=== PATIENT | male | born 1985 | race Caucasian/White ===

== ENCOUNTER 2020-01-01 09:25 | Emergency (ER) | payer MEDICAID, SELFPAY ==
[2020-01-01 09:29] VITALS: BP 155/96; PULSE 93; RESP 20; TEMP 36.8; O2SAT 96
[2020-01-01] MEDS: Ibuprofen 600 MG TAB PO (09:45)
--- NOTE | 2020-01-01 09:45 | W.ED.GENAD ---
Discharge Plan Disposition Patient Disposition: HOME Condition: Stable Discharge Details Chief Complaint: Orthopedic Clinical Impression: Closed fracture of greater tuberosity of humerus, Contusion of rib on left side, Abrasion of elbow, right, Contusion of hip, right Primary Care Provider: Paxton Iraheta ED Provider: Elaine Graham Home Meds and New Rx's Prescriptions: Continued methadone [Dolophine] 10 MG tablet 40 mg PO DAILY RF: 0 acetaminophen [Mapap Extra Strength] 500 MG tablet 1,000 mg PO Q8H Qty: 60 RF: 3 ibuprofen 800 MG tablet 800 mg PO Q8H PRN PRNQty: 60 RF: 1 Narcan 4 MG spray,non-aerosol 4 mg NS DIRECTED Qty: 2 RF: 0 Narcan 4 MG spray,non-aerosol 4 mg NS DIRECTED Qty: 2 RF: 0 Discharge Instructions Instructions: Abrasion (ED), Rib Contusion (ED), Proximal Humerus Fracture (ED) Additional Instructions: Drink plenty of fluids and get plenty of rest. Alternate tylenol and motrin as needed and directed for pain. Rest, ice, and elevate the affected area as much as possible. Call the orthopedist on Friday morning to schedule a follow-up appointment for reevaluation in 2 weeks. Return to the emergency department if you develop any worsening or new concerning symptoms. Referrals: Salty Wray MD [ [facility] STAFF PHYSICIAN] - Discharge Data Discharge Date/Time-TO BE ENTERED AT DEPARTURE: 01/01/20 10:46 Discharge Physician: Elaine Graham Medical Decision Making [id number] male presents with right shoulder pain after fall while playing with daughter yesterday. Denies head injury. Main complaint is right shoulder pain. He has tenderness palpation of right mid to lateral clavicle as well as right shoulder. He has a superficial abrasion to the right medial elbow but no pain with range of motion or deformity. He also has an area of ecchymosis to the left inferior anterior lateral ribs. He also has a superficial abrasion to the right lateral proximal thigh. Distal pulses intact. No midline spinal tenderness. Lungs clear. Abdomen soft and nontender. Will refer for right clavicle and shoulder x-rays, as well as left rib and PA lateral chest x-rays. Do not see an indication for right elbow or right hip x-rays. A dose of ibuprofen was given. X-ray notes greater tuberosity fracture. X-rays reviewed with Dr. Wray who agrees and recommends sling and follow-up in 2 weeks. The left ribs and chest x-ray noted a possibly acute left posterior 10th rib fracture. Patient denies any pain in this area. Do not suspect acute left 10th rib fracture, but patient given rib fracture recommendations anyway, advised to take deep breaths and pain control. Declined incentive spirometer. Patient placed on orthopedic follow-up list. Advised on the importance of RICE. Usual and customary return precautions given prior to discharge. Medical Records Medical records reviewed: Yes I reviewed the patient's medical records. Imaging Data Radiologic Study: Radiologist's impression: XR Left Ribs Exam date and time: 01/01/2020 9:51 AM Age: 34 years old Clinical indication: Other: S/P fall onto L ribs TECHNIQUE: Imaging protocol: XR Left ribs. Views: 2 views. COMPARISON: No relevant prior studies available. FINDINGS: Bones/joints: There appears to be a mildly displaced fracture of the left 10th rib posteriorly, which could be acute. This is near an external marker. No other fracture is identified. Soft tissues: The soft tissues appear grossly unremarkable. IMPRESSION: Apparent mildly displaced fracture of the left 10th rib posteriorly, could be acute. XR Chest, 2 Views Exam date and time: 01/01/2020 9:51 AM Age: 34 years old Clinical indication: Other: S/P fall onto L ribs TECHNIQUE: Imaging protocol: XR of the chest Views: 2 views. COMPARISON: No relevant prior studies available. FINDINGS: Lungs: Unremarkable. No consolidation. Pleural space: Unremarkable. No pleural effusion. No pneumothorax. Heart/Mediastinum: Unremarkable. No cardiomegaly. Bones/joints: Unremarkable. IMPRESSION: No evidence for acute pulmonary disease. XR Right Clavicle, Complete Exam date and time: 01/01/2020 9:55 AM Age: 34 years old Clinical indication: Other: S/P fall onto R shoulder/clavicle TECHNIQUE: Imaging protocol: XR Right clavicle complete. Any number of views. COMPARISON: CR - XR SHOULDER RT COMPLETE 2+V 01/01/2020 9:58:00 AM FINDINGS: Bones/joints: There again appears to be a nondisplaced fracture along the greater tuberosity. No other fracture is identified, including of the clavicle. There is very mild acromioclavicular arthrosis. Soft tissues: There is mild soft tissue swelling laterally over the humeral head. IMPRESSION: Probable nondisplaced fracture of the greater tuberosity. No clavicular fracture identified. XR Right Shoulder Exam date and time: 01/01/2020 9:57 AM Age: 34 years old Clinical indication: Other: S/P fall onto R shoulder TECHNIQUE: Imaging protocol: XR Right shoulder. Views: 2 or more views. COMPARISON: No relevant prior studies available. FINDINGS: Bones/joints: There is probably a nondisplaced fracture along the greater tuberosity. No other fracture is identified. The acromioclavicular and glenohumeral joints are normally aligned. There is very mild acromioclavicular arthrosis. Soft tissues: There is some soft tissue swelling laterally. IMPRESSION: 1. Probable nondisplaced fracture along the greater tuberosity. 2. Very mild acromioclavicular arthrosis. HPI General Mode of arrival: ambulatory. Date/Time Provider Initiated Documentation: 01/01/20 09:40. Limitations to Documentation: no limitations. Information obtained by: patient. HPI Narrative: Patient is a 34-year-old male who presents with right shoulder pain after fall yesterday. Patient states he was wrestling with his daughter outside when he fell onto his right outstretched arm onto the ground. He is complaining of pain in his right anterior shoulder and is concerned about possible dislocation. He denies head injury, LOC or vomiting. He states he also fell onto his right hip but denies any pain in this location. He has not taken any medication for pain. He denies any difficulty breathing, abdominal pain, neck or back pain. Related Data Home Medications Medication Instructions Recorded Confirmed methadone [Dolophine] 40 mg PO DAILY 10/28/17 01/01/20 Narcan 4 mg NS DIRECTED #2 spray 10/29/17 01/01/20 Narcan 4 mg NS DIRECTED #2 spray 10/29/17 01/01/20 acetaminophen [Mapap Extra 1,000 mg PO Q8H #60 tab 10/29/17 01/01/20 Strength] ibuprofen 800 mg PO Q8H PRN PRN #60 tablet 10/29/17 01/01/20 Previous Rx's Medication Instructions Recorded Narcan 4 mg NS DIRECTED #2 spray 10/29/17 Narcan 4 mg NS DIRECTED #2 spray 10/29/17 acetaminophen [Mapap Extra 1,000 mg PO Q8H #60 tab 10/29/17 Strength] ibuprofen 800 mg PO Q8H PRN PRN #60 tablet 10/29/17 Allergies Allergy/AdvReac Type Severity Reaction Status Date / Time No Known Allergies Allergy Unverified 01/01/20 09:34 General Stated Complaint: Orthopedic SHELLY: 4 Review of Systems All systems reviewed & are unremarkable except as noted in HPI and below Constitutional Constitutional: Reports as per HPI, Denies chills and Denies fever(s) Eyes Eyes: Denies blurry vision ENT Ears, Nose, Mouth, and Throat: Denies dizziness, Denies sore throat and Denies throat swelling Cardiovascular Cardiovascular: Denies chest pain and Denies dyspnea Respiratory Respiratory: Denies cough and Denies dyspnea Gastrointestinal Gastrointestinal: Denies abdominal pain, Denies diarrhea and Denies vomiting Genitourinary Genitourinary: Denies hematuria and Denies dysuria Musculoskeletal Musculoskeletal: Denies back pain and Denies numbness Integumentary/Breasts Skin/Breast: Denies lesions and Denies rash Neurologic Neurologic: Denies dizziness, Denies localized weakness and Denies numbness Allergic/Immunologic Allergic/Immunologic: Denies throat swelling [facility] Medical History (Updated 01/01/20 @ 10:38 by Elaine Graham DO) Narcotic abuse (Chronic) Surgical History (Updated 01/01/20 @ 09:59 by Elaine Graham DO) No significant past surgical history (Acute) Social History Smoking/Tobacco Use Status: Current every day Alcohol Intake: current Alcohol Intake frequency: 0-2 drinks per day Drug use: Rarely Details: methadone program Do you feel safe at home: Yes Do you feel safe in your relationship?: Yes Exam Const General: cooperative and healthy appearing Orientation: alert and awake HENWA Head: normal to inspection Ears: hearing grossly normal bilaterally and external ears normal General nose exam: external nose normal Face and sinus: normal facial exam Mouth: oral mucosae normal Teeth and gingiva: poor dentition Eyes General: appearance normal, both eyes and all related structures Eyelids: eyelids normal Pupils: PERRL EOM: EOM intact bilaterally Neck Neck: normal visual inspection Lymphatic: no lymphadenopathy noted Chest Chest: normal inspection of the chest Chest/axillae images: 1. Ecchymosis and tenderness noted to left inferior anterior lateral ribs. No crepitus, step-off, edema, erythema or abrasion. Resp Effort & Inspection: normal respiratory effort and able to speak in complete sentences Auscultation: clear to auscultation bilaterally Cardio Rate: regular rate Rhythm: regular rhythm GI Inspection: normal to inspection and no abdominal wall ecchymosis Palpation: soft, not firm, no guarding, no hepatosplenomegaly, no masses and nontender Auscultation: normal bowel sounds Back/Spine/Pelvis Cervical Spine: No cervical spinal tenderness Thoracic/Lumbar Spine: No thoracic spinal tenderness and No lumbar spinal tenderness Pelvis: no pain with anterior-posterior compression Skin General skin exam: no rashes or lesions noted Neuro General: patient alert and patient awake Cognition: normal cognition Speech: speech normal Gait: normal gait Motor: muscle tone normal throughout Sensory Exam: no sensory deficits noted Extrem General: normal to inspection, full ROM and capillary refill normal Shoulder/upper arm images: 1. Tenderness to palpation of right mid to lateral clavicle. No crepitus, step-off, edema or ecchymosis noted. 2. Tenderness to palpation to right anterior, lateral and posterior shoulder. No deformity, edema, ecchymosis or abrasion. Limited range of motion due to pain. Elbow/forearm/wrist images: 1. Area of superficial abrasion, minimal tenderness. No pain with range of motion at right elbow. No deformity noted. Upper/lower leg/hip images: 1. Superficial ecchymosis with minimal tenderness to palpation. No pain with range of motion at bilateral hips. Other: Full range of motion left upper and bilateral lower extremities without pain. Bilateral radial pulses intact. Psych Appearance: grossly normal Mental Status: mental status grossly normal Speech and Movement: speech and movement normal Affect: normal affect Thought Process: normal Course Vital Signs Vital signs: Vital Signs Temperature 98.2 F 01/01/20 09:29 Pulse 93 H 01/01/20 09:29 Respiratory Rate 20 01/01/20 09:29 Blood Pressure 155/96 H 01/01/20 09:29 Pulse Oximetry 96 01/01/20 09:29 Temperature 98.2 F 01/01/20 09:29 Pulse 93 H 01/01/20 09:29 Respiratory Rate 20 01/01/20 09:29 Respiratory Effort Non-Labored 01/01/20 09:32 Blood Pressure 155/96 H 01/01/20 09:29 Blood Pressure Position Sitting 01/01/20 09:29 Pulse Oximetry 96 01/01/20 09:29 Oxygen Delivery Method Room Air 01/01/20 09:29 Oxygen Flow Rate 0 01/01/20 09:29 Pain Level 6 01/01/20 09:29
--- NOTE | 2020-01-01 10:02 | DI.RAD_ITS ---
EXAM: XR SHOULDER RT COMPLETE 2+V CLINICAL HISTORY: s/p fall onto R shoulder. TECHNIQUE: 2D digital imaging was performed. COMPARISON: CR,XR XR CLAVICLE RT from 01/01/2020 FINDINGS: BONES: There is a nondisplaced fracture at the greater tuberosity. Glenohumeral joint is maintained. There are mild degenerative changes of the AC joint. The visualized portions of the right ribs are unremarkable. No pneumothorax is visible. JOINTS: No dislocation present. SOFT TISSUE: Normal. IMPRESSION: Nondisplaced fracture at the greater tuberosity. DATA REPOSITORY: RADIATION DOSE DELIVERED:
--- NOTE | 2020-01-01 10:02 | DI.RAD_ITS ---
EXAM: XR CLAVICLE RT CLINICAL HISTORY: s/p fall onto R shoulder/clavicle TECHNIQUE: 2D digital imaging was performed. COMPARISON: CR,XR XR RIBS LT W PA LAT CHEST from 01/01/2020 FINDINGS: There is a fracture of the greater tuberosity which is nondisplaced. No additional flat fractures ar e seen. There are degenerative changes of the AC joint. 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 No pneumothorax is seen. IMPRESSION: Nondisplaced fracture of the greater tuberosity. DATA REPOSITORY: RADIATION DOSE DELIVERED:
--- NOTE | 2020-01-01 10:02 | DI.RAD_ITS ---
EXAM: XR RIBS LT W PA LAT CHEST CLINICAL HISTORY: s/p fall onto L ribs. COMPARISON: No exams were available for comparison FINDINGS: LUNGS: Clear. No pneumothorax is seen. No infiltrate or effusion. HEART: Normal in size. BONES: There is a question of a left 10th rib fracture. No bony destructive lesion is seen. The spi ne is grossly intact. 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 IMPRESSION: Question of a left 10th rib fracture.
--- NOTE | 2020-01-01 10:14 | DI.VRAD_ITS ---
PROCEDURE INFORMATION: Exam: XR Right Clavicle, Complete Exam date and time: 01/01/2020 9:55 AM Age: 34 years old Clinical indication: Other: S/P fall onto R shoulder/clavicle TECHNIQUE: Imaging protocol: XR Right clavicle complete. Any number of views. COMPARISON: CR - XR SHOULDER RT COMPLETE 2+V 01/01/2020 9:58:00 AM FINDINGS: Bones/joints: There again appears to be a nondisplaced fracture along the greater tuberosity. No other fracture is identified, including of the clavicle. There is very mild acromioclavicular arthrosis. Soft tissues: There is mild soft tissue swelling laterally over the humeral head. IMPRESSION: Probable nondisplaced fracture of the greater tuberosity. No clavicular fracture identified. Dictated and Authenticated by: Kevon Edmond MD. Ordering:RUBEN Henry MD
--- NOTE | 2020-01-01 10:14 | DI.VRAD_ITS ---
PROCEDURE INFORMATION: Exam: XR Right Shoulder Exam date and time: 01/01/2020 9:57 AM Age: 34 years old Clinical indication: Other: S/P fall onto R shoulder TECHNIQUE: Imaging protocol: XR Right shoulder. Views: 2 or more views. COMPARISON: No relevant prior studies available. FINDINGS: Bones/joints: There is probably a nondisplaced fracture along the greater tuberosity. No other fracture is identified. The acromioclavicular and glenohumeral joints are normally aligned. There is very mild acromioclavicular arthrosis. Soft tissues: There is some soft tissue swelling laterally. IMPRESSION: 1. Probable nondisplaced fracture along the greater tuberosity. 2. Very mild acromioclavicular arthrosis. Dictated and Authenticated by: Kevon Edmond MD. Ordering:RUBEN Henry MD
--- NOTE | 2020-01-01 10:17 | DI.VRAD_ITS ---
PROCEDURE INFORMATION: Exam: XR Left Ribs Exam date and time: 01/01/2020 9:51 AM Age: 34 years old Clinical indication: Other: S/P fall onto L ribs TECHNIQUE: Imaging protocol: XR Left ribs. Views: 2 views. COMPARISON: No relevant prior studies available. FINDINGS: Bones/joints: There appears to be a mildly displaced fracture of the left 10th rib posteriorly, which could be acute. This is near an external marker. No other fracture is identified. Soft tissues: The soft tissues appear grossly unremarkable. IMPRESSION: Apparent mildly displaced fracture of the left 10th rib posteriorly, could be acute. PROCEDURE INFORMATION: Exam: XR Chest, 2 Views Exam date and time: 01/01/2020 9:51 AM Age: 34 years old Clinical indication: Other: S/P fall onto L ribs TECHNIQUE: Imaging protocol: XR of the chest Views: 2 views. COMPARISON: No relevant prior studies available. FINDINGS: Lungs: Unremarkable. No consolidation. Pleural space: Unremarkable. No pleural effusion. No pneumothorax. Heart/Mediastinum: Unremarkable. No cardiomegaly. Bones/joints: Unremarkable. IMPRESSION: No evidence for acute pulmonary disease. Dictated and Authenticated by: Kevon Edmond MD. Ordering:RUBEN Henry MD
== END 2020-01-01 10:46 | disposition home or self-care (01) ==
PROVIDERS: Emergency Provider Physician Assistant; PCP Family Medicine
DX: S42.251A Displaced fracture of greater tuberosity of right humerus, initial encounter for closed fracture (principal); S20.212A Contusion of left front wall of thorax, initial encounter; S50.311A Abrasion of right elbow, initial encounter; S70.01XA Contusion of right hip, initial encounter; W01.0XXA Fall on same level from slipping, tripping and stumbling without subsequent striking against object, initial encounter
CPT/HCPCS: 99284; 71046; 71100; 73000; 73030; L3650

== ENCOUNTER 2020-10-18 14:02 | Emergency (ER) | payer MEDICAID, SELFPAY ==
[2020-10-18 14:12] VITALS: BP 133/74; PULSE 69; TEMP 36.7; O2SAT 97
[2020-10-18] MEDS: Balanced Salt Solution 15 ML BTL (14:27)
[2020-10-18] MEDS: Fluorescein STRIPS 100/BOX 1 MG (14:27)
[2020-10-18] MEDS: Tetracaine 0.5% 4 ML BTL (14:27)
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
[2020-10-18] MEDS: Erythromycin Ophth Oint 3.5 GM TUBE OD (15:04)
== END 2020-10-18 15:06 | disposition home or self-care (01) ==
PROVIDERS: Emergency Provider Physician Assistant
DX: S05.02XA Injury of conjunctiva and corneal abrasion without foreign body, left eye, initial encounter (principal); W25.XXXA Contact with sharp glass, initial encounter; V49.9XXA Car occupant (driver) (passenger) injured in unspecified traffic accident, initial encounter
CPT/HCPCS: 99285; 99283

== ENCOUNTER 2021-05-24 12:23 | Emergency (ER) | payer MEDICAID, SELFPAY ==
[2021-05-24 12:51] VITALS: BP 142/83; PULSE 82; RESP 16; TEMP 37.1; O2SAT 98
[2021-05-24] MEDS: Sulfameth/Trimeth DS TAB 1 TAB PO (13:09)
--- NOTE | 2021-05-24 13:09 | ED.GENADUL_ITS ---
Discharge Plan Disposition Patient Disposition: HOME Condition: Stable Discharge Details Clinical Impression: Facial cellulitis Primary Care Provider: Ernesto Barber ED Provider: Radha Roy Home Meds and New Rx's Prescriptions: New sulfamethoxazole-trimethoprim [Bactrim DS] 800-160 mg tablet 1 tab PO BID 7 Days Qty: 14 RF: 0 No Action methadone [Dolophine] 10 MG tablet 88 mg PO DAILY RF: 0 acetaminophen [Mapap Extra Strength] 500 MG tablet 1,000 mg PO Q8H Qty: 60 RF: 3 ibuprofen 800 MG tablet 800 mg PO Q8H PRN PRNQty: 60 RF: 1 Narcan 4 MG spray,non-aerosol 4 mg NS DIRECTED Qty: 2 RF: 0 Discharge Instructions Instructions: Cellulitis (ED) Additional Instructions: Do not pick at her scratch area. Wash with soap and water every day. Allowed to air dry at least 2 hours a day. Apply antibiotic ointment once or twice a day for the next 5 to 7 days. Take the antibiotics twice daily as directed. The swelling and redness should get better in the next 3 to 5 days. If it gets any worse or you start having fever please return to the emergency department or be seen sooner. Please take Tylenol or Ibuprofen with food every 4-6 hours as needed for pain and swelling. Follow up with primary care provider in 3-5 days. Return to ED sooner if any worsening or concerns. Increase oral fluids. Referrals: Ernesto Barber, [Primary Care Provider] - 5 days Medical Decision Making 35-year-old male presents to the ER with chief complaint of right lip and facial cellulitis. He reports he had a pimple noted to his right upper lip which he popped. He reports that this morning and last night the swelling and redness became worse. He reports some white purulent drainage. He does have 2 lesions noted to the right side of his face with surrounding erythema and induration. No fluctuance or evidence of abscess. Patient is alert and oriented speaking in full sentences. He does have a past medical history of opioid dependence and narcotic abuse. He denies any allergies. No other associated symptoms denies fever, abdominal pain nausea vomiting diarrhea. Patient given topical mupirocin ointment and instructed on use and prescribed Bactrim twice daily first dose given here. Discussed return instructions. Verbalized understanding. This text was generated using [employer] system, please disregard any oddities of phrase or misspellings. HPI General Mode of arrival: ambulatory . Date/Time Provider Initiated Documentation: 05/24/21 12:52 . Limitations to Documentation: no limitations . Information obtained by: patient and RN notes reviewed . HPI Narrative: 35- year-old male presents to the ER with chief complaint of right lip and facial cellulitis. He reports he had a pimple noted to his right upper lip which he popped. He reports that this morning and last night the swelling and redness became worse. He reports some white purulent drainage. He does have 2 lesions noted to the right side of his face with surrounding erythema and induration. No fluctuance or evidence of abscess. Patient is alert and oriented speaking in full sentences. He does have a past medical history of opioid dependence and narcotic abuse. He denies any allergies. No other associated symptoms denies fever, abdominal pain nausea vomiting diarrhea. Related Data Home Medications Medication Instructions Recorded Confirmed methadone [Dolophine] 88 mg PO DAILY 10/28/17 05/24/21 Narcan 4 mg NS DIRECTED #2 spray 10/29/17 05/24/21 acetaminophen [Mapap Extra 1,000 mg PO Q8H #60 tab 10/29/17 05/24/21 Strength] ibuprofen 800 mg PO Q8H PRN PRN #60 tablet 10/29/17 05/24/21 sulfamethoxazole-trimethoprim 1 tab PO BID 7 Days #14 tab 05/24/21 [Bactrim DS] Previous Rx's Medication Instructions Recorded Narcan 4 mg NS DIRECTED #2 spray 10/29/17 acetaminophen [Mapap Extra 1,000 mg PO Q8H #60 tab 10/29/17 Strength] ibuprofen 800 mg PO Q8H PRN PRN #60 tablet 10/29/17 sulfamethoxazole-trimethoprim 1 tab PO BID 7 Days #14 tab 05/24/21 [Bactrim DS] Allergies Allergy/AdvReac Type Severity Reaction Status Date / Time No Known Allergies Allergy Unverified 05/24/21 12:57 General Stated Complaint: Cellulitis SHELLY: 4 Review of Systems All systems reviewed & are unremarkable except as noted in HPI and below Integumentary/Breasts Skin/Breast: Reports as per HPI, Reports skin pain, Reports skin swelling and Reports wounds PFSH All Active Problems Abrasion, corneal (Acute) Facial cellulitis (Acute) No-show for appointment (Acute) Open fracture of right fibula (Acute) Medical History Narcotic abuse Surgical History No significant past surgical history Social History Smoking/Tobacco Use Status: Current every day Tobacco Type: cigarettes Smoking risk assessment performed?: Yes Alcohol Intake: current Alcohol Intake frequency: 3 or more drinks per day Alcohol type: hard liquor Drug use: Daily Substance use type: marijuana Details: methadone program Do you feel safe at home: Yes Do you feel safe in your relationship?: Yes Exam Const General: cooperative, healthy appearing and comfortable Nutritional Appearance: average body habitus and well nourished Orientation: alert, awake and oriented x3 HENMT Head: normal to inspection Head images: 1. Lesion noted to right upper lip 2. Abrasion 3. Erythema, induration Ears: hearing grossly normal bilaterally General nose exam: external nose normal and nares normal Face and sinus: sinuses nontender, abrasion, erythema, no fluctuance, no lacerations, no sinus tenderness and tenderness Mouth: oral mucosae normal Throat: posterior oropharynx normal Neck Neck: full ROM, no lymphadenopathy, trachea midline, supple and no anterior neck swelling Course Vital Signs Vital signs: Vital Signs Temperature 37.1 C 05/24/21 12:51 Pulse 82 05/24/21 12:51 Respiratory Rate 16 05/24/21 12:51 Blood Pressure 142/83 H 05/24/21 12:51 Pulse Oximetry 98 05/24/21 12:51 Temperature 37.1 C 05/24/21 12:51 Temperature Source Temporal Artery Scan 05/24/21 12:51 Pulse 82 05/24/21 12:51 Respiratory Rate 16 05/24/21 12:51 Respiratory Effort Non-Labored 05/24/21 12:55 Blood Pressure 142/83 H 05/24/21 12:51 Blood Pressure Position Sitting 05/24/21 12:51 Pulse Oximetry 98 05/24/21 12:51 Oxygen Delivery Method Room Air 05/24/21 12:51 Oxygen Flow Rate 0 05/24/21 12:51 Pain Level 3 05/24/21 12:51 PAWSS Have you Been Recently Intoxicated or Drunk Within the Last 30 days?: No Have you Ever Experienced Previous Episodes of Alcohol Withdrawal?: No Have you ever Experienced Withdrawal Seizures?: No Have you ever Experienced Delirium Tremens(DT)s?: No Have you ever undergone Alcohol Rehabilitation Treatment (i.e, inpt ot out patient treatment programs)?: No Have you ever Experienced Blackouts?: No Have you ever Combined Alcohol with other Downers within the last 90 days?: No Have you ever Combined Alcohol with any other Substance of Abuse during the last 90 days?: No Positive Blood Alcohol level on Presentation? [PCS.BAL]: No Evidence of Increased Autonomic Activity (i.e. HR>120, tremor, sweating, agitation, nausea)?: No Result: 0
[2021-05-24] MEDS: Sulfameth/Trimeth DS, 2 TABS/BTL 1 TAB PO (13:10)
== END 2021-05-24 13:17 | disposition home or self-care (01) ==
PROVIDERS: Emergency Provider Registered Nurse Emergency; PCP Emergency Medicine
DX: L03.211 Cellulitis of face (principal); K13.0 Diseases of lips
CPT/HCPCS: 99283

== ENCOUNTER 2021-09-14 10:26 | Emergency (ER) | payer MEDICAID, SELFPAY ==
[2021-09-14 11:03] VITALS: BP 164/65; PULSE 69; RESP 18; TEMP 36.4; O2SAT 99
--- NOTE | 2021-09-14 12:42 | DI.RAD_ITS ---
Exam(s) XR KNEE LT 3V AP,LAT,MAGNUS EXAM: XR KNEE LT 3V AP,LAT,MAGNUS CLINICAL HISTORY: Fall, Pain, Wound. TECHNIQUE: 2D digital imaging was performed. COMPARISON: No exams were available for comparison FINDINGS: 3 views No evidence of fracture but there is a joint effusion. Bone density normal. No osseous lesions. No radiopaque foreign body. No osteochondral defects. IMPRESSION: No osseous findings but there is a joint effusion. Appropriate follow-up recommended DATA REPOSITORY: RADIATION DOSE DELIVERED:
[2021-09-14 12:53] LABS: Abs Immature Grans 0.04 10^3/uL (0.0-0.06); Absolute Basophil Count 0.06 10^3/uL (0.0-0.2); Absolute Eosinophil Count 0.25 10^3/uL (0.0-0.7); Absolute Lymphocyte Count 1.93 10^3/uL (1.2-3.4); Absolute Monocyte Count 1.14 10^3/uL (0.1-0.8); Absolute Neutrophil Count 6.24 10^3/uL (1.2-6.7); Basophils % 0.6; Eosinophils % 2.6; HCT 43.2 % (40.0-50.0); HGB 13.9 g/dL (13.5-17.5); Immature Grans % 0.4; MCH 30.1 pg (27.0-33.0); MCHC 32.2 % (32.0-36.0); MCV 93.5 fL (80-95); MPV 9.8 fL (8.0-11.0); Monocytes % 11.8; Neutrophils % 64.6; Nucleated RBC 0 %; Platelet Count 237 10^3/uL (130-400); RBC 4.62 10^6/uL (4.36-5.78); RDW 13.2 % (11.8-14.1); RDW-SD 45.1 fL; WBC 9.66 10^3/uL (4.4-10.8)
[2021-09-14 12:55] LABS: ALT 20 U/L (16-63); AST 18 U/L (15-37); Albumin 3.4 g/dL (3.4-5.0); Alkaline Phosphatase 90 U/L (46-116); Anion Gap 5.7 mmol/L (3-11); BUN 6 mg/dL (7-18); Bilirubin, Total 0.5 mg/dL (0.2-1.0); CO2 27.3 mmol/L (21.0-32.0); CREATININE 0.9 mg/dL (0.70-1.30); Calcium 8.9 mg/dL (8.5-10.1); Chloride 104 mmol/L (98-107); Glucose 89 mg/dL (74-106); Magnesium 2.4 mg/dL (1.8-2.4); Potassium 4.8 mmol/L (3.5-5.1); Sodium 137 mmol/L (136-145)
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
[2021-09-14] MEDS: Sulfameth/Trimeth DS, 2 TABS/BTL 1 TAB PO (13:19)
[2021-09-14] MEDS: Sulfameth/Trimeth DS TAB 1 TAB PO (13:19)
== END 2021-09-14 13:33 | disposition home or self-care (01) ==
PROVIDERS: Emergency Provider Registered Nurse Emergency
DX: L03.818 Cellulitis of other sites (principal); W19.XXXA Unspecified fall, initial encounter; Y92.015 Private garage of single-family (private) house as the place of occurrence of the external cause; F11.90 Opioid use, unspecified, uncomplicated
CPT/HCPCS: 36415; 73562; 80053; 99284; 83735; 85025; 86140; 99283

== ENCOUNTER 2021-12-25 13:54 | Emergency (ER) | payer MEDICAID, SELFPAY ==
[2021-12-25 13:57] VITALS: BP 142/82; PULSE 74; RESP 18; TEMP 36.5; O2SAT 97
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
[2021-12-25] MEDS: Sulfameth/Trimeth DS TAB 1 TAB (15:40)
== END 2021-12-25 15:41 | disposition home or self-care (01) ==
PROVIDERS: Emergency Provider Physician Assistant
DX: L03.115 Cellulitis of right lower limb (principal)
CPT/HCPCS: 99283

== ENCOUNTER 2022-03-18 16:39 | Emergency (ER) | payer MEDICAID, SELFPAY ==
[2022-03-18 16:52] VITALS: BP 157/79; PULSE 87; RESP 18; TEMP 36.7; O2SAT 99
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
--- NOTE | 2022-03-18 17:31 | NUR.NOTE ---
Nursing Note: Referral given to Care Management patient needs PCP, establish care, routine follow up.
[2022-03-18] MEDS: Doxycycline Hyclate 100 MG CAP PO (17:36)
--- NOTE | 2022-03-20 14:59 | PDOC.ERCMACT ---
- If Service Date Differs Date of service: 03/20/22 Time of Service: 14:59 Care Management Activity Note Griffin is seen in the ED for cellulitis of his right leg. At the request of ED provider, NOEMY coordinates a referral to Nevaeh Castellanos NP, of [facility], on-call provider, to assist Griffin in obtaining a follow up appointment and in establishing care with a PCP. He has Medicaid for insurance.
== END 2022-03-18 17:40 | disposition home or self-care (01) ==
PROVIDERS: Emergency Provider Physician Assistant
DX: L03.115 Cellulitis of right lower limb (principal); L03.211 Cellulitis of face; T23.121A Burn of first degree of single right finger (nail) except thumb, initial encounter; T31.0 Burns involving less than 10% of body surface; F17.210 Nicotine dependence, cigarettes, uncomplicated; X08.8XXA Exposure to other specified smoke, fire and flames, initial encounter
CPT/HCPCS: 99283; 99284

== ENCOUNTER 2022-04-06 15:33 | Emergency (ER) | payer MEDICAID, SELFPAY ==
[2022-04-06 15:36] VITALS: BP 141/81; PULSE 78; RESP 17; TEMP 37; O2SAT 97
--- NOTE | 2022-04-06 15:53 | ED.GENADUL_ITS ---
Discharge Plan Disposition Patient Disposition: HOME Condition: Stable Discharge Details Clinical Impression: Cellulitis of leg, right Primary Care Provider: Unknown,Unknown ED Provider: Radha Roy Home Meds and New Rx's Prescriptions: New clindamycin HCl 150 mg capsule 450 mg PO TID 7 Days Qty: 63 0RF Rx Instructions: Take three capsules 3 times daily x 7 days. No Action methadone [Dolophine] 10 MG tablet 60 mg PO DAILY Label Comments: 11/12/17-PT STATES CURRENT DOSE IS 55MG DAILY--JUAN JOSÉ SHEARER acetaminophen [Mapap Extra Strength] 500 MG tablet 1,000 mg PO Q8H Qty: 60 3RF ibuprofen 800 MG tablet 800 mg PO Q8H PRN PRNQty: 60 1RF naloxone [Narcan] 4 MG spray,non-aerosol 4 mg NS DIRECTED Qty: 2 0RF Rx Instructions: One spray (4mg) intranasally into one nostril. May repeat once after initial dose in 2-3 minutes. Discharge Instructions Instructions: Cellulitis (ED), Chronic Wound Care (ED) Additional Instructions: Take the antibiotic 3 times daily x7 days with yogurt or probiotic. Take it with food. Apply the topical cream 3 times daily for the next 5 to 7 days. Keep clean and dry Follow up with primary care provider in 3-5 days. Return to ED sooner if any worsening or concerns. Increase oral fluids. Please take Tylenol or Ibuprofen with food every 4-6 hours as needed for pain and swelling. Medical Decision Making 36-year-old male who presents to the ER with recurrent wound to his right posterior calf. He has been treated with a 10-day course of doxycycline reports that he does not have an appointment with his PCP for another 2 weeks and is requesting more antibiotics. Patient appears nontoxic, and denies any systemic symptoms, No tachycardia or fever. This has been an ongoing problem for some months treated with multiple courses of antibiotics. At this time I will prescribe mupirocin cream topically 3 times a day for the next 7 days we will give a tube here. I will also prescribe clindamycin as patient has not tried this yet. He just finished doxycycline. Before that he has been on cephalexin and Bactrim. Discussed home care and follow up care and strict return instructions. This text was generated using Critique^Itation system, please disregard any oddities of phrase or misspellings. Medical Records Medical records reviewed: Yes I reviewed the patient's medical records. HPI General Mode of arrival: ambulatory . Date/Time Provider Initiated Documentation: 04/06/22 15:37 . Limitations to Documentation: no limitations . Information obtained by: patient, RN notes reviewed and old records reviewed . HPI Narrative: 36-year-old male who presents to the ER with recurrent wound to his right posterior calf. He has been treated with a 10-day course of doxycycline reports that he does not have an appointment with his PCP for another 2 weeks and is requesting more antibiotics. He reports that the wound looks no better no worse. He does have approximately 1 x 1 cm lesion with surrounding erythema to the distal aspect of his posterior calf, he also has another lesion more proximal which is smaller and scabbed over. He reports that it has been draining and he expressed some pus from it prior to arrival. This is been a recurrent issue with him. He denies any fever chills body aches or any systemic type symptoms. Related Data Home Medications Medication Instructions Recorded Confirmed methadone 10 mg tablet (Dolophine) 60 mg PO DAILY 10/28/17 04/06/22 acetaminophen 500 mg tablet (Mapap 1,000 mg PO Q8H ##60 10/29/17 04/06/22 Extra Strength) ibuprofen 800 mg tablet 800 mg PO Q8H PRN PRN ##60 10/29/17 04/06/22 naloxone 4 mg/actuation nasal 4 mg NS DIRECTED #2 sprays 10/29/17 04/06/22 spray (Narcan) clindamycin HCl 150 mg capsule 450 mg PO TID 7 days #63 caps 04/06/22 Previous Rx's Medication Instructions Recorded acetaminophen 500 mg tablet (Mapap 1,000 mg PO Q8H ##60 10/29/17 Extra Strength) ibuprofen 800 mg tablet 800 mg PO Q8H PRN PRN ##60 10/29/17 naloxone 4 mg/actuation nasal 4 mg NS DIRECTED #2 sprays 10/29/17 spray (Narcan) clindamycin HCl 150 mg capsule 450 mg PO TID 7 days #63 caps 04/06/22 Allergies Allergy/AdvReac Type Severity Reaction Status Date / Time No Known Allergies Allergy Unverified 04/06/22 15:41 General Stated Complaint: Cellulitis SHELLY: 4 Review of Systems All systems reviewed & are unremarkable except as noted in HPI and below Integumentary/Breasts Skin/Breast: Reports erythema, Reports skin ulcer and Reports sores PFSH All Active Problems (Updated 04/06/22 @ 16:00 by Radha Roy NP) Abrasion, corneal (Acute) Facial cellulitis (Acute) Cellulitis of leg, right (Acute) Cellulitis of leg, right (Acute) No-show for appointment (Acute) Open fracture of right fibula (Acute) Medical History Narcotic abuse Surgical History No significant past surgical history Social History Smoking/Tobacco Use Status: Current every day Tobacco Type: cigarettes Smoking risk assessment performed?: Yes Alcohol Intake: current Alcohol Intake frequency: 3 or more drinks per day Alcohol type: hard liquor Drug use: Daily Substance use type: marijuana Details: Pt is on a methadone program. Pt injects Fentanyl from the streets 2-3 times a month normally, although none this month. Do you feel safe at home: Yes Do you feel safe in your relationship?: Yes Exam Extrem Upper/lower leg/hip images: 1. Approximately one by one ulcer type lesion surrounding with erythema 2. A smaller approximately 0.5 cm diameter scabbed over lesion with surrounding erythema Course Vital Signs Vital signs: Vital Signs Temperature 37.0 C 04/06/22 15:36 Pulse 78 04/06/22 15:36 Respiratory Rate 17 04/06/22 15:36 Blood Pressure 141/81 H 04/06/22 15:36 Pulse Oximetry 97 04/06/22 15:36 Temperature 37.0 C 04/06/22 15:36 Temperature Source Temporal Artery Scan 04/06/22 15:36 Pulse 78 04/06/22 15:36 Respiratory Rate 17 04/06/22 15:36 Respiratory Effort Non-Labored 04/06/22 15:39 Blood Pressure 141/81 H 04/06/22 15:36 Blood Pressure Position Sitting 04/06/22 15:36 Pulse Oximetry 97 04/06/22 15:36 Oxygen Delivery Method Room Air 10/29/22 15:36 Oxygen Flow Rate 0 04/06/22 15:36 Pain Level 4 04/06/22 15:36 PAWSS Have you Been Recently Intoxicated or Drunk Within the Last 30 days?: No Have you Ever Experienced Previous Episodes of Alcohol Withdrawal?: No Have you ever Experienced Withdrawal Seizures?: No Have you ever Experienced Delirium Tremens(DT)s?: No Have you ever undergone Alcohol Rehabilitation Treatment (i.e, inpt ot outpatient treatment programs)?: No Have you ever Experienced Blackouts?: No Have you ever Combined Alcohol with other Downers within the last 90 days?: No Have you ever Combined Alcohol with any other Substance of Abuse during the last 90 days?: No Result: 0
[2022-04-06] MEDS: Clindamycin 150 MG CAP 450 MG PO (16:02)
[2022-04-06] MEDS: Clindamycin 150 MG CAP, 12 CAPS/BTL 450 MG PO (16:02)
== END 2022-04-06 16:12 | disposition home or self-care (01) ==
PROVIDERS: Emergency Provider Registered Nurse Emergency
DX: L03.115 Cellulitis of right lower limb (principal)
CPT/HCPCS: 99283

== ENCOUNTER 2023-01-07 19:45 | Emergency (ER) | payer MEDICAID, SELFPAY ==
[2023-01-07] VITALS (42 sets, daily range): BP systolic 180–212; BP diastolic 80–117; PULSE 60–102; RESP 24; O2SAT 93–100
[2023-01-07 20:04] LABS: HCT 45.5 % (40.0-50.0); HGB 15.3 g/dL (13.5-17.5); MCH 31.9 pg (27.0-33.0); MCHC 33.6 % (32.0-36.0); MCV 95 fL (80-95); Platelet Count 310 10^3/uL (130-400); RBC 4.79 10^6/uL (4.36-5.78); RDW 11.9 % (11.8-14.1); RDW-SD 41.5 fL; WBC 13.72 10^3/uL (4.4-10.8)
[2023-01-07] MEDS: Normal Saline 1,000 ML 1000 ML IV (20:05)
[2023-01-07] MEDS: Ketamine 500 MG/10 ML VIAL 20 MG IVP ×2 (20:10→20:38)
[2023-01-07] MEDS: HYDROmorphone 2 MG/ML SYR IVP ×4 (20:11→20:47)
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
[2023-01-07 20:21] LABS: ALT 28 U/L (16-63); AST 34 U/L (15-37); Albumin 3.8 g/dL (3.4-5.0); Alkaline Phosphatase 99 U/L (46-116); BUN 8 mg/dL (7-18); Bilirubin, Total 0.3 mg/dL (0.2-1.0); CREATININE 1.1 mg/dL (0.70-1.30); Calcium 8.3 mg/dL (8.5-10.1); Chloride 101 mmol/L (98-107); Estimated GFR 89.22 (mL/min/1.73m2); Glucose 214 mg/dL (74-106); Potassium 3.1 mmol/L (3.5-5.1); Sodium 137 mmol/L (136-145); Total Protein 7.5 g/dL (6.4-8.2)
[2023-01-07 20:25] LABS: Absolute Basophil Count 0.14 10^3/uL (0.0-0.2); Absolute Lymphocyte Count 8.78 10^3/uL (1.2-3.4); Absolute Monocyte Count 0.55 10^3/uL (0.1-0.8); Absolute Neutrophil Count 4.25 10^3/uL (1.2-6.7); Atypical Lymphocytes % 12; Diff Comment Manual Differential; RBC Morphology Normal
[2023-01-07] MEDS: Lactated Ringers 1,000 ML 1000 ML IV ×2 (20:57→21:01)
[2023-01-07] MEDS: Ketamine 500 MG/10 ML VIAL 30 MG IVP (20:59)
[2023-01-07] MEDS: fentaNYL 100 MCG/2 ML VIAL IVP (21:01)
[2023-01-07] MEDS: fentaNYL 1,000 MCG in Normal Saline 80 ML 10.013 MCG IV (21:10)
--- NOTE | 2023-01-07 21:31 | NUR.NOTE ---
Nursing Note: Patient left department with [facility] at 2125; appears more comfortable. Warmed LR bolus #2 infusing as well as Fentanyl drip infusing on transfer. The patient belongings from pockets removed by female visitor and sent home with her. Report called to Nancy CAN at [facility] at [phone]. Total of 3 L of fluids will have infused.
--- NOTE | 2023-01-08 08:15 | NUR.NOTE ---
Nursing Note: Per DI was asked to look in to the order for portable cxr that did not appear to be done. There is an order. No images. No documentation of a portable cxr done. Order was cancelled.
== END 2023-01-07 21:45 | disposition short-term general hospital (02) ==
PROVIDERS: Student in an Organized Health Care Education/Training Program; Emergency Provider Student in an Organized Health Care Education/Training Program
DX: T22.292A Burn of second degree of multiple sites of left shoulder and upper limb, except wrist and hand, initial encounter (principal); T22.291A Burn of second degree of multiple sites of right shoulder and upper limb, except wrist and hand, initial encounter; T20.27XA Burn of second degree of neck, initial encounter; T21.21XA Burn of second degree of chest wall, initial encounter; T24.292A Burn of second degree of multiple sites of left lower limb, except ankle and foot, initial encounter; T24.291A Burn of second degree of multiple sites of right lower limb, except ankle and foot, initial encounter; T31.20 Burns involving 20-29% of body surface with 0% to 9% third degree burns; F19.10 Other psychoactive substance abuse, uncomplicated; F17.210 Nicotine dependence, cigarettes, uncomplicated; W40.8XXA Explosion of other specified explosive materials, initial encounter; Y93.89 Activity, other specified; Y92.89 Other specified places as the place of occurrence of the external cause; Y99.9 Unspecified external cause status
CPT/HCPCS: 80053; 90472; 96361; 96374; 96375; 96376; 99291; 85025; J1170; J3010